=== PATIENT | female | born 1985 | race Caucasian/White ===

== ENCOUNTER 2019-07-28 03:49 | Emergency (ER) | payer SELFPAY ==
--- NOTE | 2019-07-28 04:31 | ED ---
Abdominal Pain/Female - HPI Summary HPI Summary: 34 year old F presenting to [facility] accompanied by family member complains of left lower abdominal pain which woke her from her sleep minutes prior to arrival. Patient states she felt fine before going to bed yesterday evening. The patient rates the pain 6/10 in severity. Symptoms aggravated by nothing. Symptoms alleviated by nothing. PMHx: ovarian torsions x3, last time being in June 2019 during which she was admitted to [facility] in [place] and refused surgery at the time. States today's symptoms feel similar. PMHx: Uterine and cervical cancer for which she had radiation and was treated in [place]. Surgical hx: right sided oophrectomy. PMHx: Crohn's disease and pulmonary embolism for which she takes Eliquis. - History of Current Complaint Chief Complaint: EDAbdPain Stated Complaint: OVARIAN TORSIAN PER PT Hx Obtained From: Patient Onset/Duration: Lasting Minutes, Still Present Timing: Constant Severity Currently: Moderate Pain Intensity: 6 Pain Scale Used: 0-10 Numeric Location: Discrete At: LLQ Aggravating Factor(s): Nothing Alleviating Factor(s): Nothing Allergies/Adverse Reactions: Allergies Allergy/AdvReac Type Severity Reaction Status Date / Time adhesive tape Allergy Itching Verified 07/28/19 03:56 amoxicillin Allergy Hives Verified 07/28/19 03:55 Iodinated Contrast Media Allergy Itching Verified 07/28/19 07:34 metoclopramide [From Reglan] Allergy See Comment Verified 07/28/19 03:55 prochlorperazine Allergy See Comment Verified 07/28/19 03:55 [From Compazine] ketorolac [From Toradol] AdvReac Nausea And Verified 07/28/19 03:55 Vomiting Home Medications: Home Medications Apixaban* [Eliquis*] 5 mg PO DAILY 07/28/19 [History Confirmed 07/28/19] PMH/Surg Hx/FS Hx/Imm Hx Cardiovascular History: Reports: Hx Deep Vein Thrombosis Respiratory History: Reports: Hx Pulmonary Embolism - on Eliquis GI History: Reports: Hx Crohn's Disease, Hx Irritable Bowel, Other GI Disorders - SBO History: Reports: Other Problems/Disorders - hx ovarian torsion - Cancer History Cancer Type, Location and Year: uterine and cervical cancer. ovarian cancer - Surgical History Surgery Procedure, Year, and Place: right sided oophectomy. hysterectomy. appendectomy. bowel surgery. bowel resection x9 with colostomy x2 and subsequent reversal. coarcation of aorta repair. hernia repair. 9 bowel resections Infectious Disease History: No Infectious Disease History: Denies: Traveled Outside the [place] in Last 30 Days - Family History Known Family History: Negative: Diabetes - Social History Alcohol Use: None Substance Use Type: Reports: None Smoking Status (MU): Never Smoked Tobacco Review of Systems Negative: Fever Positive: Abdominal Pain All Other Systems Reviewed And Are Negative: Yes Physical Exam - Summary Physical Exam Summary: Appearance: Well-appearing, Well-nourished, lying in bed comfortably Skin: Warm, dry, no obvious rash Eyes: sclera anicteric, no conjunctival pallor ENT: mucous membranes moist, pharynx appears normal Neck: Supple, nontender Respiratory: Clear to auscultation, no signs of respiratory distress Cardiovascular: Normal S1, S2. No murmurs. Normal distal pulses in tibial and radial bilaterally. Abdomen: Exquisite LLQ tenderness with guarding Musculoskeletal: Normal, Strength/ROM Intact Neurological: A&Ox3, awake and alert, mentation is normal, speech is fluent and appropriate Psychiatric: affect is normal, does not appear anxious or depressed Triage Information Reviewed: Yes Vital Signs On Initial Exam: Initial Vitals Temp Pulse Resp BP Pulse Ox 98.1 F 60 16 91/63 98 07/28/19 03:53 07/28/19 03:53 07/28/19 03:53 07/28/19 03:53 07/28/19 03:53 Vital Signs Reviewed: Yes Procedures - Sedation Patient Received Moderate/Deep Sedation with Procedure: No Diagnostics - Vital Signs Vital Signs Temp Pulse Resp BP Pulse Ox 07/28/19 03:53 98.1 F 60 16 91/63 98 - Laboratory Result Diagrams: 07/28/19 07:30 07/28/19 07:30 Lab Statement: Any lab studies that have been ordered have been reviewed, and results considered in the medical decision making process. Re-Evaluation - Re-Evaluation First Eval Re-Evaluation Time: 06:42 Change: Unchanged Comment: The ultrasound shows good arterial and venous flow according to the US tech; I am awaiting a formal reading from the radiologist. The patient says she still has pain and is worried that she may have torsion that comes and goes. After getting records from [facility], it appears that she is well known there and has been there many times for flares of abdominal pain. However, she does have an US that demonstrates no flow on June 28, but then mosque of flow on the . She now also tells me she went to a different hospital in [place] a week ago and had to be flown to a tertiary care center where surgery was recommended that she refused due to worries about complications that might force an ostomy. She is not sure at this point if she wants to stay for any further evaluation. This would be further complicated by her poor peripheral access. One of the nurses is going to try for an IV now and to get blood. Abdominal Pain Fem Course/Dx - Course Course Of Treatment: 34 year old F complains of left lower abdominal pain which woke her from her sleep minutes prior to arrival. Physical exam findings: Exquisite LLQ tenderness with guarding. In the ED course, the patient was given morphine 10 mg IM, Zofran 8 mg PO, and Bendaryl 25 mg IM. The patient will be signed out to Dr. Hood upon shift change on 07/28/19 at 07:00 awaiting labs and US and pending disposition. - Diagnoses Provider Diagnoses: Abdominal pain Discharge ED - Sign-Out/Discharge Documenting (check all that apply): Sign-Out Patient Signing out patient TO: Ethan Hood - awaiting US and labs, pending disposition - Discharge Plan Condition: Good Disposition: AGAINST MEDICAL ADVICE Referrals: No Primary Care Phys,NOPCP [Primary Care Provider] - - Billing Disposition and Condition Condition: GOOD Disposition: Against Medical Advice - Attestation Statements Document Initiated by Andreas: Yes Documenting Scribe: Windy Orr Provider For Whom Andreas is Documenting (Include Credential): Kaushik Davis MD Scribe Attestation: I, Windy Orr, scribed for Kaushik Davis MD on 07/31/19 at 1939. Scribe Documentation Reviewed: Yes Provider Attestation: The documentation as recorded by the Windy payne accurately reflects the service I personally performed and the decisions made by me, Kaushik Davis MD Status of Scribe Document: Viewed
[2019-07-28] MEDS ORDERED: diPHENhydraMINE IV* 50 MG/ML 1 ml VIAL (BENADRYL) IM ONE (04:36)
[2019-07-28] MEDS ORDERED: Ondansetron ODT TAB* 4 MG SL ONE (04:36)
[2019-07-28] MEDS ORDERED: Morphine 10 MG/ML VIAL (1 ml) IM ONE (04:36)
[2019-07-28 06:40] VITALS: BP 111/64
--- NOTE | 2019-07-28 07:11 | ED ---
Progress - Progress Note Progress Note: Pt is a signout from Dr. Davis at 0700 on 07/28/19 pending US, labs, and dispo. - Results/Orders Results/Orders: US Transvaginal shows: 2.4 cm x 1.3 cm x 2.2 cm exophytic left ovarian cyst or left paraovarian cyst for which follow-up is not necessary. ED physician has reviewed this report. Re-Evaluation - Re-Evaluation First Eval Re-Evaluation Time: 07:45 Change: Unchanged Comment: Pt is requesting more pain medication as well as more Benadryl. The pt was given Morphine not too long ago, and she is allergic to Toradol, therefore I will be re-evaluating her pain in the near future. She states when she has had contrast in the past she has been given 100mg of Benadryl, however 50mg can only be given q4hrs. I will give 25mg IV to total 50mg given to the pt before her CT. Course/Dx - Course Course Of Treatment: Pt is a signout from Dr. Davis at 0700 on 07/28/19 pending US, labs, and dispo. This patient was signed out by Dr. Davis at shift change. He reports that the patient came with abdominal pain and she only has a left ovary. The patient had a hysterectomy and right oophorectomy in the past. The patient had pelvic ultrasound which shows a normal left ovary without any torsion and normal flow. Therefore, he recommended for me to follow up on the blood test results and abdominopelvic CT which he has ordered. The patient was given morphine 10 mg IM. At approximately 9:40 AM the patient reports that she declines the abdominopelvic CT and wants to go home. The patient will sign the AGAINST MEDICAL ADVICE form. I extensively discussed with the patient the benefits and risk of leaving AMA. I also discussed the alternatives to leaving AMA, however, the patient still insist to leave the hospital AMA. The patient is clinically sober, free from distracting injury, appears to have intact insight and judgment and reason and in my opinion has the capacity to make decisions. Patient has full capacity and is cognitively intact. The patient presents with lower abdominal pain. I have explained that I am concerned with her symptoms and may represent a life threatening abdominal pathology and . The patient verbalizes understanding of my concerns. I have also explained the results of the labs and even though they are normal. The primary nurse and the charge nurse also strongly recommended that the patient should not leave AMA. Patient understands the risks of leaving AMA, which includes but is not restricted to . Patient signed the AMA form. Patient was also advised to return to ED if he changes his mind or if the symptoms worsen or other symptoms appear. Patient understands and agrees. Again , I discussed all the findings and test results with the patient. Patient was instructed to return to the emergency room immediately if any of the symptoms return or worsen. Plan of care was discussed with the patient and understands and agrees. All questions were answered at patient satisfaction. There were no further complaints or concerns. Patient signed AMA and he was discharged AMA. - Diagnoses Provider Diagnoses: Abdominal pain Discharge ED - Sign-Out/Discharge Documenting (check all that apply): Patient Departure, Receiving Sign-Out Receiving patient FROM: Kaushik Davis - Discharge Plan Disposition: AGAINST MEDICAL ADVICE Referrals: No Primary Care Phys,NOPCP [Primary Care Provider] - - Attestation Statements Document Initiated by Scribe: Yes Documenting Scribe: Rose Marie Le Provider For Whom Reinaibe is Documenting (Include Credential): Ethan Hood MD. Scribe Attestation: I, Rose Marie Le, scribed for Ethan Hood MD. on 07/28/19 at 1031. Status of Scribe Document: Ready
[2019-07-28] MEDS ORDERED: NS 0.9% 1000 ML** 1,000 ML IV ONE (07:23)
[2019-07-28] MEDS ORDERED: diPHENhydraMINE IV* 50 MG/ML 1 ml VIAL (BENADRYL) SLOW PUSH ONE (07:44)
[2019-07-28 07:45] LABS: ABS Basophils 0.1 10^3/ul (0-0.2); ABS Eosinophils 0.2 10^3/ul (0-0.6); ABS Lymphocytes 1.9 10^3/ul (1.0-4.8); ABS Monocytes 0.4 10^3/ul (0-0.8); ABS Neutrophils 4.9 10^3/ul (1.5-7.7); Eosinophil % 2.3 %; Hematocrit 38 % (35-47); Hemoglobin 12.7 g/dL (12.0-16.0); Lymphocyte % 25.5 %; Mean Corpuscular HGB Conc 34 g/dL (31-36); Mean Corpuscular Hemoglobin 25 pg (27-31); Mean Corpuscular Volume 75 fL (80-97); Mean Platelet Volume 9.6 fL (7.4-10.4); Nucleated Red Blood Cells % 0.1; Platelet Count 205 10^3/uL (150-450); Red Cell Distribution Width 18 % (10-15); White Blood Count 7.5 10^3/uL (3.5-10.8)
[2019-07-28 08:02] LABS: Albumin 4.4 g/dL (3.2-5.2); Albumin/Globulin Ratio 1.7 (1-3); BUN/Creatinine Ratio 17.4 (8-20); Calcium 9.3 mg/dL (8.6-10.3); Globulin 2.6 g/dL (2-4); Potassium 3.9 mmol/L (3.5-5.0); Total Bilirubin 0.5 mg/dL (0.2-1.0)
[2019-07-28 08:08] LABS: HCG Pregnancy 1.41 mIU/mL
== END 2019-07-28 09:34 | disposition left against medical advice (07) ==
LOC: ED 03:49
DX: N83.202 Unspecified ovarian cyst, left side (principal); R10.32 Left lower quadrant pain; Z86.718 Personal history of other venous thrombosis and embolism; Z86.711 Personal history of pulmonary embolism; Z79.01 Long term (current) use of anticoagulants; Z85.41 Personal history of malignant neoplasm of cervix uteri; Z85.43 Personal history of malignant neoplasm of ovary; Z90.721 Acquired absence of ovaries, unilateral; Z90.710 Acquired absence of both cervix and uterus; Z90.89 Acquired absence of other organs; Z88.5 Allergy status to narcotic agent; Z88.0 Allergy status to penicillin; Z88.8 Allergy status to other drugs, medicaments and biological substances; Z91.048 Other nonmedicinal substance allergy status
CPT/HCPCS: 36415; 76830; 80053; 84702; 85025; 96361; 96372; 96374; 99283; A9270-GY; J1200; J2270